=== PATIENT | male | born 1945 | race Caucasian/White ===

== ENCOUNTER → 2021-04-18 08:34 | Outpatient (REF) | payer MEDICARE, SELFPAY | LOC: ANHLAB 08:34 | PROVIDERS: Visit Provider Nurse Practitioner | DX: D22.39 Melanocytic nevi of other parts of face (principal) | CPT/HCPCS: 88305 ==

== ENCOUNTER 2021-08-23 09:57 | Emergency (ER) | payer MEDICARE, SELFPAY ==
--- NOTE | ~2021-08-23 | XR_ITS ---
EXAMINATION: XR foot RT min 3V EXAM DATE: 08/23/2021 10:20 INDICATION: injury to rt foot, bruising . Initial encounter. TECHNIQUE: Right foot dorsoplantar, lateral and oblique projections obtained and reviewed. There is no prior study for comparison. FINDINGS: There is acute closed posttraumatic oblique fracture through the shaft of the right 4th pro ximal phalanx with mild angulation and about 3 mm displacement. There is overlying soft tissue swelli ng. No other acute fracture identified. Right metatarsal bones unremarkable. Patient may have hammer toe deformities, clinical correlation. Small calcaneal spurs. IMPRESSION: Acute right 4th proximal phalangeal shaft fracture. Reviewed, dictated and finalized at location A. IT CORRESPONDENCE CLERK
--- NOTE | 2021-08-23 10:03 | ED.LOWEXIN ---
HPI - Extremity Injury (Lower) General Chief Complaint: Extremity Injury, Lower Stated Complaint: foot pain Source: patient and RN notes reviewed Mode of arrival: ambulatory Limitations: no limitations Related Data Home Medications Medication Instructions Recorded Confirmed atorvastatin 06/26/19 canagliflozin [Invokana] mg 06/26/19 clopidogrel 06/26/19 exenatide microspheres [Bydureon] mg SUBCUT 06/26/19 insulin lispro [Humalog KwikPen unit SUBCUT 06/26/19 Insulin] lisinopril 06/26/19 metoprolol succinate PO 06/26/19 sertraline mg 06/26/19 cholecalciferol (vitamin D3) 10 10 mcg PO DAILY 09/06/20 mcg (400 unit) capsule metformin 500 mg tablet,extended 500 mg PO DAILY 09/06/20 release 24 hr vitamin B12 500 mcg-folic acid 400 1 tablet PO DAILY 09/06/20 mcg tablet Allergies Allergy/AdvReac Type Severity Reaction Status Date / Time No Known Allergies Allergy Verified 08/23/21 10:07 Review of Systems Review of Systems: CONSTITUTIONAL: Denies malaise, chills, sweats, or fever. SKIN: Denies rash or itching, open skin, laceration, abrasion, redness, warmth, swelling. MUSCULOSKELETAL: Reports left knee pain NEUROLOGIC: Denies numbness, weakness All systems reviewed & are unremarkable except as noted in HPI and below PMFSH Past Medical History Medical History Diabetes Hypercholesterolemia Hypertension Surgical History Surgical History History of cardiac cath History of cholecystectomy History of tonsillectomy Hx of appendectomy Social History Social History Alcohol intake: current Comments At time of signature, agree with nursing past medical, surgical, social and family history. There is no relevant family history pertinent to the presenting complaint Exam Narrative: GENERAL: Well-appearing, well-nourished, and in no acute distress. HEAD: Normocephalic, atraumatic. EYES: PERRLA, conjunctivae clear NECK: Supple. CHEST: Speaks in full sentences. No respiratory distress. HEART: Regular rate and rhythm. Normal and equal peripheral pulses. EXTREMITIES: [Xxx] has normal strength and sensation, normal range of motion. No edema or ecchymosis. 5/5 strength with [xxx] flexion and extension. Normal sensation with sensitivity to light touch and pain. No point tenderness. No open wounds, no skin tenting, no devitalized tissue or atrophy, no trophic changes, no obvious deformity, alignment normal, nearby joints and structures intact. Distal pulses palpable and equal bilaterally, skin warm, dry, pink. Capillary refill less than 3 seconds. SKIN: Warm, dry, no rash. NEURO: Alert and oriented x3. PSYCH: Normal mood and affect Course Course Emergency Course: Patient is aware of diagnosis, understands and agrees to treatment plan. Anticipatory guidance given. Patient agrees to follow-up as directed and is aware of reasons to seek care at the emergency department. Portions of this record may have been created with voice recognition software Level of Care: Express Care Visit Vital Signs Vital signs: Reviewed. Procedures Orthopedic Splinting/Casting Injury #1: Splinting/Casting Date: 08/23/21 Splinting/Casting Time: 10:35 Lower Extremity Injury Location: foot Splint: prefabricated Pre-Formed: post op shoe Pre-Procedure Neuro Vascular Exam: normal Post-Procedure Neuro Vascular Exam: normal Additional Comments: medical records tech advised on application of splint, medical records tech applied MDM - Extremity Injury (Lower) MDM Narrative Medical decision making narrative: Patients injury and pain is consistent with musculoskeletal etiology. No signs of neurological or vascular compromise on exam. Compartments and tissues are soft without signs of compartment syndrome. Pain is felt appropriate for further
[2021-08-23 10:09] VITALS: BP 185/89; PULSE 67; RESP 18; TEMP 36.1; O2SAT 100
[2021-08-23 10:15] VITALS: BP 185/89; PULSE 67; RESP 18; TEMP 36.1; O2SAT 100
== END 2021-08-23 10:47 | disposition home or self-care (01) ==
PROVIDERS: Emergency Provider Nurse Practitioner
DX: S92.511A Displaced fracture of proximal phalanx of right lesser toe(s), initial encounter for closed fracture (principal); X58.XXXA Exposure to other specified factors, initial encounter; E11.9 Type 2 diabetes mellitus without complications; E78.00 Pure hypercholesterolemia, unspecified; I10 Essential (primary) hypertension
CPT/HCPCS: 73630; 99214; G0463

== ENCOUNTER 2022-09-13 08:00 | Outpatient (NON) | payer MEDICARE, SELFPAY | END 2022-09-13 08:01 | disposition home or self-care (01) | LOC: ANHLAB 09-14 12:24 | PROVIDERS: Visit Provider Nurse Practitioner | DX: D22.5 Melanocytic nevi of trunk (principal) | CPT/HCPCS: 88305 ==

== ENCOUNTER 2024-01-05 13:38 | Outpatient (CLI) | payer MEDICARE, SELFPAY ==
--- NOTE | ~2024-01-05 | MR_ITS ---
MRI of the lumbar spine Clinical History: Radiculopathy Technique: Axial T2-weighted images, and sagittal T1-weighted, T2-weighted, and T2 fat-sat images wer e acquired. COMPARISON: 11/21/2059 Findings: There is no fracture or subluxation of the lumbar spine. Vertebral bodies maintain normal h eight and alignment. No suspicious bone marrow signal abnormality seen. At T12-L1, there is central disc protrusion with moderate to severe facet arthropathy. No abilio centr al canal stenosis. Neural foramina are preserved. At L1-L2, there is minimal disc bulge with moderate to advanced facet arthropathy. No central canal s tenosis or neural foraminal narrowing. At L2-L3, there is no disc bulge or herniation. There is advanced facet arthropathy. No central canal stenosis or neural foraminal narrowing. At L3-L4, there is disc extrusion extending superiorly behind the L3 vertebral body centrally, with s uperimposed mild disc bulge. Severe facet arthropathy is also present, contributing to severe spinal canal stenosis/thecal sac compression at this level. There is moderate right neural foraminal narrowi ng. Left neural foramen preserved. At L4-L5, there is diffuse disc bulge and severe facet arthropathy, resulting in severe spinal canal stenosis/thecal sac compression. There is moderate left neural foraminal narrowing, severe right neur al foraminal narrowing. At L5-S1, there is advanced degenerative disc narrowing. There is mild disc bulge and severe facet ar thropathy. No abilio central canal stenosis. There is severe bilateral neural foraminal compromise. Paravertebral soft tissues are unremarkable. Impression: Severe degenerative spondylosis at L3-L4, L4-L5, L5-S1, as detailed above. Central disc extrusion pre sent at L3-L4, extending superiorly. Reviewed, dictated and finalized at location M. Impression: Severe degenerative spondylosis at L3-L4, L4-L5, L5-S1, as detailed above. Cent ral disc extrusion present at L3-L4, extending superiorly.
== END 2024-01-05 13:39 | disposition home or self-care (01) ==
LOC: ANHIMG 13:38
PROVIDERS: Visit Provider Physical Medicine & Rehabilitation Pain Medicine
DX: M47.26 Other spondylosis with radiculopathy, lumbar region (principal)
CPT/HCPCS: 72148

== ENCOUNTER 2024-04-10 09:15 | Outpatient (CLI) | payer MEDICARE, SELFPAY ==
--- NOTE | ~2024-04-10 | XR_ITS ---
EXAMINATION: XR pelvis min 3V DATE: 04/10/2024 09:55 INDICATION: Sacroiliitis. TECHNIQUE: 3 views of the pelvis were obtained. COMPARISON: None. FINDINGS: Bone alignment is normal. No fracture. There is severe lumbar spondylosis. There is mild os teoarthritis of the sacroiliac joints. There is moderate osteoarthritis of the hips. IMPRESSION: 1. Mild osteoarthritis of the sacroiliac joints. No evidence of inflammatory arthropathy. Reviewed, dictated and finalized at location A. IMPRESSION: 1. Mild osteoarthritis of the sacroiliac joints. No evidence of inflammatory ar thropathy.
== END 2024-04-10 09:16 | disposition home or self-care (01) ==
PROVIDERS: Visit Provider Physical Medicine & Rehabilitation Pain Medicine
DX: M46.1 Sacroiliitis, not elsewhere classified (principal)
CPT/HCPCS: 72190